=== PATIENT | male | born 1990 | race African-American/Black ===

== ENCOUNTER 2018-12-25 12:06 | Emergency (ER) | payer MEDICAID, OTHER ==
[~2018-12-25] VITALS: Ht 175.3 cm; Wt 61.2 kg
[2018-12-25 12:49] LABS: BILIRUBIN, URINE MANUAL N (NEGATIVE); GLUCOSE, URINE (UA) MANUAL N mg/dL (NEGATIVE); KETONE, URINE MANUAL N mg/dL (NEGATIVE); UROBILINOGEN, URINE MANUAL N mg/dl (NORMAL)
[2018-12-25 12:58] LABS: BACTERIA, URINE NONE SEEN; HYALINE CAST, URINE NONE SEEN /lpf (0-1); SQUAMOUS EPITHELIAL CELL URINE SMALL AMOUNT /hpf (SMALL AMT)
[2018-12-25] MEDS ORDERED: cefTRIAXone SOD 250 MG VIAL (J0696) IM ONE (13:45)
[2018-12-25] MEDS ORDERED: AZITHROMYCIN 250 MG TAB PO ONE (13:45)
[2018-12-25] MEDS ORDERED: LIDOCAINE 1% SDV 5 ML VIAL DILUENT ONE (13:45)
[2018-12-25 13:56] VITALS: BP 130/65
[2018-12-25 14:32] LABS: CHLAMYDIA DNA AMPLIFICATION NEGATIVE (NEGATIVE); GC DNA AMPLIFICATION NEGATIVE (NEGATIVE)
== END 2018-12-25 14:02 | disposition home or self-care (01) ==
LOC: M ED 12:06
DX: N34.2 Other urethritis (principal); F17.210 Nicotine dependence, cigarettes, uncomplicated
CPT/HCPCS: 81000; 87086; 87491; 87591; 96372; 99284; J0696